=== PATIENT | female | born 1930 | race Caucasian/White ===

== ENCOUNTER 2020-12-05 11:36 | Inpatient (IN) ==
[2020-12-05 12:55] LABS: Basophils # 0.1 10*3/uL (0.0-0.2); Basophils % 0.8 % (0.0-0.8); Eosinophils # 0.3 10*3/uL (0.0-0.87); Eosinophils % 2.3 % (0.00-10.9); Hematocrit 36.9 VOL% (35.7-47.0); Hemoglobin 11.2 GM/DL (12.0-16.0); Immature Granulocytes % 0.4 %; Immature Granulocytes Absolute 0.05 #; Lymphocytes # 2.8 10*3/uL (1.4-4.0); Lymphocytes % 21.9 % (21.3-54.2); Mean Corpuscular HGB Conc 30.4 GM/DL (32-36); Mean Corpuscular Volume 80.2 FL (87-102); Mean Platelet Volume 8.4 FL (9.6-12.0); Monocytes % 9.5 % (1.7-12.7); Neutrophils % 65.1 % (38.7-73.9); Platelet Count 519 T/CUMM (130-400); White Blood Count 12.9 T/CUMM (4-12)
[2020-12-05 13:07] LABS: PT Patient Result 11.5 SECS (10.5-12.0); Partial Thromboplastin Time 30.8 SECS (23.9-33.8)
[2020-12-05 13:17] LABS: Albumin 2.9 G/DL (3.4-5.0); Bilirubin,Total 0.4 MG/DL (0.2-1.0); Calcium 8.1 MG/DL (8.5-10.1); Osmolality,Calculated 267.7 MOS/KG (273-304); Potassium 3.2 MMOL/L (3.5-5.1); Total Protein 7.5 G/DL (6.4-8.2)
[2020-12-05] MEDS ORDERED: GLUCAGON 1 MG VIAL IM PRN (14:45)
[2020-12-05] MEDS ORDERED: DEXTROSE 50% 25 GM/50 ML VIAL IV PRN (14:45)
[2020-12-05] MEDS ORDERED: ACETAMINOPHEN 325 MG TABLET PO PRN (14:47)
[2020-12-05] MEDS ORDERED: traMADol 50 MG TABLET PO PRN (14:47)
[2020-12-05] MEDS ORDERED: MAGNESIUM HYDROXIDE SUSP 30 ML UDCUP PO PRN (14:47)
[2020-12-05] MEDS ORDERED: ALUMINUM/MAGNES/SIMETH MAX STR 30 ML UDCUP PO PRN (14:47)
[2020-12-05] MEDS ORDERED: BISACODYL 10 MG SUPP RECTAL PRN (14:47)
[2020-12-05] MEDS ORDERED: POTASSIUM CHLORIDE 20 MEQ TABLET PO ONE (14:51)
[2020-12-05] MEDS ORDERED: ENOXAPARIN 30 MG/0.3 ML SYRINGE SUBCUT SCH (15:00)
[2020-12-05] MEDS ORDERED: DEXTROSE 5% NACL 0.9% 1,000 ML IV SCH (15:00)
[2020-12-05] MEDS ORDERED: POLYETHYLENE GLYCOL POWDER 17 GM PACK PO PRN (17:55)
[2020-12-05] MEDS: SIMVASTATIN 40 MG TABLET PO SCH (20:25)
[2020-12-05] MEDS: DONEPEZIL 10 MG TABLET PO SCH (20:25)
[2020-12-05] MEDS: MIRTAZAPINE 15 MG TABLET PO SCH (20:25)
[2020-12-05] MEDS: MAGNESIUM OXIDE 400 MG TABLET PO SCH (20:25)
[2020-12-05] MEDS: DEXT 5% NACL 0.9% KCL 20 MEQ 20 MEQ/1,000 ML BAG IV SCH (20:26)
[2020-12-06 05:29] LABS: Basophils # 0.1 10*3/uL (0.0-0.2); Basophils % 0.7 % (0.0-0.8); Eosinophils # 0.3 10*3/uL (0.0-0.87); Hematocrit 32.3 VOL% (35.7-47.0); Hemoglobin 9.7 GM/DL (12.0-16.0); Immature Granulocytes % 0.3 %; Immature Granulocytes Absolute 0.03 #; Lymphocytes # 2.2 10*3/uL (1.4-4.0); Lymphocytes % 22.4 % (21.3-54.2); Mean Platelet Volume 8.4 FL (9.6-12.0); Monocytes % 9.5 % (1.7-12.7); Neutrophils % 64.1 % (38.7-73.9); Platelet Count 459 T/CUMM (130-400); Red Blood Count 3.99 MC/CUMM (3.8-5.5); Red Cell Distribution Width 19.7 % (9.3-17.3); White Blood Count 9.7 T/CUMM (4-12)
[2020-12-06 05:47] LABS: Calcium 7.9 MG/DL (8.5-10.1); Osmolality,Calculated 271.2 MOS/KG (273-304); Potassium 3.4 MMOL/L (3.5-5.1)
[2020-12-06] MEDS ORDERED: POTASSIUM CHLORIDE 20 MEQ TABLET PO ONE ×2 (07:30→13:45)
[2020-12-06] MEDS ORDERED: LACTATED RINGERS 1,000 ML IV SCH (08:30)
[2020-12-06] MEDS ORDERED: LIDOCAINE 2% 5 ML VIAL ONE (08:41)
[2020-12-06] MEDS ORDERED: fentaNYL 100 MCG/2 ML VIAL ONE (08:41)
[2020-12-06] MEDS ORDERED: ONDANSETRON 4 MG/2 ML VIAL ONE (08:41)
[2020-12-06] MEDS ORDERED: ROCURONIUM 50 MG/5 ML VIAL IV ONE (08:41)
[2020-12-06] MEDS ORDERED: propofoL 200 MG/20 ML VIAL IV ONE (08:41)
[2020-12-06] MEDS ORDERED: ETOMIDATE 40 MG/20 ML VIAL IV ONE (08:41)
[2020-12-06] MEDS ORDERED: SEVOFLURANE 1 UNIT/15 MINUTE INH ONE ×4 (08:41→10:38)
[2020-12-06] MEDS ORDERED: LACTULOSE 20 GM/30 ML UDCUP PO PRN (09:32)
[2020-12-06] MEDS: MAGNESIUM OXIDE 400 MG TABLET PO SCH ×2 (09:32→20:57)
[2020-12-06] MEDS: DEXT 5% NACL 0.9% KCL 20 MEQ 20 MEQ/1,000 ML BAG IV SCH ×2 (09:32→12:06)
[2020-12-06] MEDS: CALCIUM (CARBONATE)/VITAMIN D 600 MG-400 UNIT TABLET PO SCH (09:32)
[2020-12-06] MEDS ORDERED: diphenhydrAMINE CAP 25 MG CAPSULE PO PRN (09:32)
[2020-12-06] MEDS: LEVOTHYROXINE 75 MCG TABLET PO SCH (09:33)
[2020-12-06] MEDS: PANTOPRAZOLE 40 MG TABLET PO SCH (09:33)
[2020-12-06] MEDS ORDERED: POLYVINYL ALCOHOL 1.4% OPH SOLN 15 ML BOTTLE BOTH EYES PRN (09:35)
[2020-12-06] MEDS ORDERED: NYSTATIN POWDER 15 GM BOTTLE TOP PRN (09:35)
[2020-12-06] MEDS ORDERED: SODIUM PHOSPHATE ENEMA 133 ML BOTTLE RECTAL PRN (09:35)
[2020-12-06] MEDS ORDERED: HydrOXYzine PAMOATE 25 MG CAPSULE PO PRN (09:35)
[2020-12-06] MEDS ORDERED: METOPROLOL TARTRATE 5 MG/5 ML VIAL IV ONE (10:00)
[2020-12-06] MEDS ORDERED: GLYCOPYRROLATE 0.4 MG/2 ML VIAL ONE (10:09)
[2020-12-06] MEDS ORDERED: PHENYLEPHRINE DRIP 20 MG/250 ML PREMIX IV ONE (10:36)
[2020-12-06] MEDS ORDERED: MORPHINE 10 MG/1 ML VIAL ONE (10:42)
[2020-12-06] MEDS: MORPHINE 10 MG/1 ML VIAL IV PRN ×3 (10:45→11:19)
[2020-12-06] MEDS ORDERED: ONDANSETRON 4 MG/2 ML VIAL IV PRN (11:07)
[2020-12-06] MEDS ORDERED: SODIUM CHLORIDE 2% BOTH EYES SCH (13:00)
[2020-12-06] MEDS ORDERED: [UNRECOGNIZED DRUG - OTHER] BOTH EYES SCH (13:00)
[2020-12-06] MEDS: CYPROHEPTADINE 4 MG TABLET PO SCH ×2 (14:06→20:57)
[2020-12-06] MEDS ORDERED: NON-FORMULARY MEDICATION (Alendronate [Fosamax] 70 mg Tablet) PO SCH (14:47)
[2020-12-06] MEDS: MORPHINE 4 MG/1 ML VIAL IV PRN (16:19)
[2020-12-06] MEDS: ONDANSETRON 4 MG/2 ML VIAL IV PRN ×2 (16:19→21:19)
[2020-12-06] MEDS: FUROSEMIDE 40 MG TABLET PO SCH (16:37)
[2020-12-06 18:06] LABS: Bacteria,Urine Occasional /HPF (Few); Bilirubin,Urine Negative (Negative); Blood, Urine Moderate mg/dL (Negative); Glucose,Urine (UA) Negative (Negative); Ketones,Urine Negative (Negative); Mucus,Urine Occasional /LPF (Occasional); Nitrite,Urine Negative (Negative); Protein,Urine 30 MG/DL; RBC,Urine 94 /HPF (0-4); Squamous Epithelial Cell,Urine Occasional /HPF (0-10); Urine Appearance Slightly Hazy (Clear); Urine Color Yellow (Yellow); Urine Specific Gravity 1.016 (1.001-1.035); Urine Urobilinogen < 2.0 EU/DL (0.2-1.0)
[2020-12-06] MEDS: MEMANTINE 10 MG TABLET PO SCH (20:57)
[2020-12-06] MEDS: MIRTAZAPINE 15 MG TABLET PO SCH (20:57)
[2020-12-06] MEDS: DONEPEZIL 10 MG TABLET PO SCH (20:57)
[2020-12-06] MEDS: APIXABAN 2.5 MG TABLET PO SCH (20:57)
[2020-12-06] MEDS: SIMVASTATIN 40 MG TABLET PO SCH (20:57)
[2020-12-07] MEDS: DEXT 5% NACL 0.9% KCL 20 MEQ 20 MEQ/1,000 ML BAG IV SCH ×3 (01:48→17:31)
[2020-12-07] MEDS: MORPHINE 4 MG/1 ML VIAL IV PRN ×2 (06:57→15:07)
[2020-12-07 07:26] LABS: Osmolality,Calculated 276.8 MOS/KG (273-304); Potassium 4.8 MMOL/L (3.5-5.1)
[2020-12-07 07:35] LABS: Basophils # 0.1 10*3/uL (0.0-0.2); Basophils % 0.3 % (0.0-0.8); Eosinophils # 0.1 10*3/uL (0.0-0.87); Eosinophils % 0.8 % (0.00-10.9); Hematocrit 27.4 VOL% (35.7-47.0); Hemoglobin 8.3 GM/DL (12.0-16.0); Immature Granulocytes % 0.7 %; Immature Granulocytes Absolute 0.11 #; Lymphocytes # 2.5 10*3/uL (1.4-4.0); Lymphocytes % 16.1 % (21.3-54.2); Mean Corpuscular HGB Conc 30.3 GM/DL (32-36); Mean Platelet Volume 8.7 FL (9.6-12.0); Monocytes % 7.1 % (1.7-12.7); Platelet Count 392 T/CUMM (130-400); Red Blood Count 3.34 MC/CUMM (3.8-5.5); Red Cell Distribution Width 19.8 % (9.3-17.3); White Blood Count 15.4 T/CUMM (4-12)
[2020-12-07] MEDS: MEMANTINE 10 MG TABLET PO SCH (09:23)
[2020-12-07] MEDS: FUROSEMIDE 40 MG TABLET PO SCH ×2 (09:23→15:08)
[2020-12-07] MEDS: PANTOPRAZOLE 40 MG TABLET PO SCH (09:23)
[2020-12-07] MEDS: APIXABAN 2.5 MG TABLET PO SCH (09:23)
[2020-12-07] MEDS: MAGNESIUM OXIDE 400 MG TABLET PO SCH (09:24)
[2020-12-07] MEDS: cefTRIAXone 1,000 MG in SODIUM CHLORIDE 0.9% 100 ML IV SCH (09:24)
[2020-12-07] MEDS: CYPROHEPTADINE 4 MG TABLET PO SCH ×2 (09:24→15:08)
[2020-12-07] MEDS: LEVOTHYROXINE 75 MCG TABLET PO SCH (09:24)
[2020-12-07] MEDS: CALCIUM (CARBONATE)/VITAMIN D 600 MG-400 UNIT TABLET PO SCH (09:24)
[2020-12-07] MEDS: carvediloL 6.25 MG TABLET PO SCH (09:28)
[2020-12-07] MEDS ORDERED: OLANZapine 5 MG TABLET PO ONE (16:29)
[2020-12-08] MEDS: MAGNESIUM OXIDE 400 MG TABLET PO SCH ×3 (00:37→20:11)
[2020-12-08] MEDS: MEMANTINE 10 MG TABLET PO SCH ×3 (00:37→20:10)
[2020-12-08] MEDS: DONEPEZIL 10 MG TABLET PO SCH ×2 (00:37→20:10)
[2020-12-08] MEDS: MIRTAZAPINE 15 MG TABLET PO SCH ×2 (00:37→20:10)
[2020-12-08] MEDS: APIXABAN 2.5 MG TABLET PO SCH ×3 (00:37→20:10)
[2020-12-08] MEDS: SIMVASTATIN 40 MG TABLET PO SCH ×2 (00:37→20:10)
[2020-12-08] MEDS: CYPROHEPTADINE 4 MG TABLET PO SCH ×4 (00:37→20:11)
[2020-12-08] MEDS: carvediloL 6.25 MG TABLET PO SCH ×3 (01:00→22:07)
[2020-12-08 06:23] LABS: Basophils % 0.3 % (0.0-0.8); Eosinophils # 0.3 10*3/uL (0.0-0.87); Eosinophils % 2.4 % (0.00-10.9); Hematocrit 30.2 VOL% (35.7-47.0); Hemoglobin 8.8 GM/DL (12.0-16.0); Immature Granulocytes % 0.7 %; Immature Granulocytes Absolute 0.08 #; Lymphocytes # 1.5 10*3/uL (1.4-4.0); Lymphocytes % 12.9 % (21.3-54.2); Mean Corpuscular HGB Conc 29.1 GM/DL (32-36); Mean Corpuscular Volume 86.8 FL (87-102); Monocytes % 9.4 % (1.7-12.7); Neutrophils % 74.3 % (38.7-73.9); Platelet Count 321 T/CUMM (130-400); Red Blood Count 3.48 MC/CUMM (3.8-5.5); White Blood Count 11.9 T/CUMM (4-12)
[2020-12-08 06:47] LABS: Calcium 7.7 MG/DL (8.5-10.1); Osmolality,Calculated 267.5 MOS/KG (273-304); Potassium 4.4 MMOL/L (3.5-5.1)
[2020-12-08] MEDS: FUROSEMIDE 40 MG TABLET PO SCH ×2 (09:16→16:02)
[2020-12-08] MEDS: PANTOPRAZOLE 40 MG TABLET PO SCH (09:16)
[2020-12-08] MEDS: CALCIUM (CARBONATE)/VITAMIN D 600 MG-400 UNIT TABLET PO SCH (09:16)
[2020-12-08] MEDS: cefTRIAXone 1,000 MG in SODIUM CHLORIDE 0.9% 100 ML IV SCH (09:23)
[2020-12-08] MEDS ORDERED: DIGOXIN 0.125 MG TABLET PO SCH (13:00)
[2020-12-08] MEDS: DEXT 5% NACL 0.9% KCL 20 MEQ 20 MEQ/1,000 ML BAG IV SCH ×2 (13:23→22:10)
[2020-12-08] MEDS ORDERED: OLANZapine 5 MG TABLET PO PRN (16:01)
[2020-12-08] MEDS ORDERED: OLANZapine 5 MG TABLET PO SCH (19:00)
[2020-12-09 05:52] LABS: Basophils # 0.1 10*3/uL (0.0-0.2); Basophils % 0.4 % (0.0-0.8); Eosinophils # 0.4 10*3/uL (0.0-0.87); Eosinophils % 3.7 % (0.00-10.9); Hematocrit 27.8 VOL% (35.7-47.0); Hemoglobin 8.1 GM/DL (12.0-16.0); Immature Granulocytes % 0.7 %; Immature Granulocytes Absolute 0.08 #; Lymphocytes # 1.5 10*3/uL (1.4-4.0); Lymphocytes % 12.6 % (21.3-54.2); Mean Corpuscular HGB Conc 29.1 GM/DL (32-36); Mean Corpuscular Volume 84.8 FL (87-102); Mean Platelet Volume 9.8 FL (9.6-12.0); Monocytes % 9.3 % (1.7-12.7); Neutrophils % 73.3 % (38.7-73.9); Platelet Count 345 T/CUMM (130-400); Red Blood Count 3.28 MC/CUMM (3.8-5.5); White Blood Count 11.7 T/CUMM (4-12)
[2020-12-09] MEDS ORDERED: LEVOTHYROXINE 75 MCG TABLET PO SCH (06:00)
[2020-12-09 06:21] LABS: Calcium 7.4 MG/DL (8.5-10.1); Osmolality,Calculated 269.4 MOS/KG (273-304); Potassium 4.4 MMOL/L (3.5-5.1)
[2020-12-09] MEDS: CALCIUM (CARBONATE)/VITAMIN D 600 MG-400 UNIT TABLET PO SCH (09:18)
[2020-12-09] MEDS: CYPROHEPTADINE 4 MG TABLET PO SCH (09:18)
[2020-12-09] MEDS: MAGNESIUM OXIDE 400 MG TABLET PO SCH (09:19)
[2020-12-09] MEDS: FUROSEMIDE 40 MG TABLET PO SCH (09:19)
[2020-12-09] MEDS: MEMANTINE 10 MG TABLET PO SCH (09:19)
[2020-12-09] MEDS: PANTOPRAZOLE 40 MG TABLET PO SCH (09:19)
[2020-12-09] MEDS: carvediloL 6.25 MG TABLET PO SCH (09:19)
[2020-12-09] MEDS: cefTRIAXone 1,000 MG in SODIUM CHLORIDE 0.9% 100 ML IV SCH (09:39)
[2020-12-09] MEDS: APIXABAN 2.5 MG TABLET PO SCH (09:39)
[2020-12-09 12:09] VITALS: BP 91/54
== END 2020-12-09 14:09 | DRG 481 ==
LOC: EDBD → EDUNIT# → N.ED 11:36 → N.EDINP 13:56 → SUATTDRO 13:56 → N.3E 17:49
PROVIDERS: ADMIT Internal Medicine; ATTEND Hospitalist